=== PATIENT | female | born 1980 | race Caucasian/White ===

== ENCOUNTER 2023-02-11 21:29 | Emergency (ER) | payer BC, SELFPAY ==
[2023-02-11 21:31] VITALS: BP 132/69; PULSE 80; RESP 15; TEMP 36.3; O2SAT 100; BMI 37.3
--- NOTE | 2023-02-11 22:20 | CT_ITS ---
We are attempting to reach an attending provider to discuss findings. An addendum with communication details will be sent when the communication is complete. EXAM: CT PELVIS WITHOUT INTRAVENOUS CONTRAST CLINICAL INDICATION: vaginal pain, mass TECHNIQUE: Helically acquired images were obtained of the pelvis without intravenous contrast. This CT exam was performed using one or more of the following dose reduction techniques: automated exposure control, adjustment of the mA and/or kV according to patient size, and/or use of iterative reconstruction technique. RADIATION DOSE: CTDIvol = 28.21 mGy, DLP = 1032.15 mGy-cm. COMPARISON: No relevant prior studies available. FINDINGS: BOWEL: Unremarkable as visualized. No bowel distention. No focal inflammatory change. APPENDIX: No evidence of acute appendicitis. INTRAPERITONEAL SPACE: Trace intrapelvic fluid. No free air. BLADDER: Loss of fat plane between the posterior urinary bladder and the prominent cervix and posterior vagina on the sagittal images, there appears to be some intact posterior bladder wall. Mildly thick-walled appearance of the urinary bladder is almost collapsed. REPRODUCTIVE: Enlarged uterus with heterogeneous enlarged cervix, best seen on the sagittal exam, overall uterine size at least 11.3 cm x 6.1 cm x 7.3 cm with very heterogeneous enlarged cervix which may contain prominent complex material or large mass moderate large low-attenuation focus of roughly 4.8 cm x 4.3 cm involving cervix and possibly superior vagina. BONES/JOINTS: Unremarkable. No suspicious lytic or blastic abnormality. SOFT TISSUES: Small fat-containing inguinal hernias. Small fat-containing umbilical hernia is included. LYMPH NODES: Unremarkable. No enlarged lymph nodes. CT/Pelvis without IV Contrast IMPRESSION: 1. Enlarged uterus, mild, and very prominent and heterogeneous cervix-posterior vagina. Considerations include inflammation and/or neoplasm involving cervix and posterior vagina. 2. The endometrial stripe in the uterus is not clearly seen on this limited unenhanced exam. 3. Pelvic MRI might be considered if thought to be indicated. 4. Slight intrapelvic free fluid. 5. Normal appendix is included. 6. Small fat-containing inguinal and umbilical hernias. Electronically Signed: Alexus Diallo MD at 0:41 EDT ,
[2023-02-11 22:32] LABS: Bacteria 0 SEEN /hpf (None Seen); Mucous, Urine 0 SEEN /hpf (<or=2+)
[2023-02-11 22:34] LABS: Color, Urine Yellow (Yellow); Glucose, Dipstick Normal (Normal); Ketone-Dipstick 5 mg/dl (Negative); Leukocyte Esterase-Dipstick 500 /ul (Negative); Nitrite-Dipstick Negative (Negative); Occult Blood-Urine 250 /ul (Negative); Protein-Dipstick 30 mg/dl (Negative); Specific Gravity, Urine 1.015 (1.002-1.030); Urine Bilirubin Dipstick Negative (Negative); Urine Clarity Sl. Cloudy (Clear); Urine Urobilinogen Normal (Normal)
[2023-02-11 22:38] LABS: Internal QC Validated? YES +Cl - CLEAR BKGD; Pregnancy, Urine Negative Negative
[2023-02-11 22:41] LABS: Amorphous Sediment 1+ URATE; Red Blood Cells-Urine 10-25 SEEN /hpf (0-5); Squamous Epithelial Cells - UA 0-5 SEEN /hpf (5-10); White Blood Cells 25-50 SEEN /hpf (0-5)
--- NOTE | 2023-02-11 22:42 | EDS_ITS ---
HPI HPI - Female History of Present Illness Chief Complaint: Complaint Detail of Chief Complaint: Possible bladder or uterine prolapse Informant: patient Narrative Narrative: Patient presents due to concern for bladder or uterine prolapse. She states she had a full sensation in her vaginal area since Friday. She went to a [facility] in [place] today who told her they thought she had a prolapse and needed to follow-up with her [employer]. She cannot be seen until a week from Friday so therefore presented to the emergency room. She reports having some watery discharge, but no bleeding. She states her last menstrual cycle was a month ago when she should be due to start her cycle any day. PFSH FORMERLY [facility], 1928–1983 Medical History Abnormal Pap smear of cervix Home Medications NK 02/11/23 [History Last Taken Unknown] Allergy/AdvReac Type Severity Reaction Status Date / Time amoxicillin Allergy Swelling Verified 02/11/23 21:36 Family History Father Hypertension Mother Hyperlipemia Surgical History H/O knee surgery History of tonsillectomy Social History household members: spouse Smoking Status: Never smoker ROS ROS ED Constitutional Constitutional ED: Denies chills or fever(s) Eyes Eyes: Denies change in vision or discharge from eye(s) ENT ENT ED: Denies discharge from eye(s), rhinorrhea or sore throat Cardiovascular Cardiovascular: Denies chest pain or palpitations Respiratory/Chest Respiratory/Chest: Denies cough or dyspnea Gastrointestinal Gastrointestinal: Reports abdominal pain; Denies nausea or vomiting Genitourinary Genitourinary ED: Denies dysuria Musculoskeletal Musculoskeletal: Denies back pain or extremity pain Integumentary Denies Abrasions or rash Neurologic Neurologic: Denies headache(s) or weakness Psychiatric Psychiatric: Denies anxiety or depression Allergic/Immunologic Allergic/Immunologic ED: Denies lip swelling or urticaria EXAM Physical Exam Const Vital Signs: 02/11/23 21:31 02/12/23 00:14 Temperature 97.4 F L Temperature Source Temporal Pulse Rate 80 70 Respiratory Rate 15 16 Blood Pressure 132/69 H 114/60 Blood Pressure Mean 90 78 Pulse Ox 100 98 Oxygen Delivery Method Room Air Room Air Positive well nourished and well developed General Appearance ED: well developed HEENT Reports normocephalic and head/scalp atraumatic Eyes PERRL and EOMs intact bilaterally Neck supple Chest Wall inspection of chest normal and palpation of chest normal Resp normal respiratory effort and clear to auscultation bilaterally Cardio regular rate and regular rhythm GI normal to inspection, nondistended, normoactive bowel sounds Palpation: soft Narrative: Watery vaginal discharge noted. Cervix appears to be low riding on bimanual exam. Back/Spine no CVA tenderness Extremity normal to inspection Neuro oriented x3 and no sensory deficits noted Sensorium / Orientation: alert Motor Exam: strength 5/5 throughout Psych mental status grossly normal Skin no rashes or lesions noted MDM [facility] Lab Data Labs: Laboratory Results - last 24 hr 02/11/23 22:27 Urine Color Yellow Urine Clarity Sl. Cloudy Urine pH 6.0 Ur Specific [place] 1.015 Urine Protein 30 H Urine Glucose (UA) Normal Urine Ketones 5 H Urine Occult Blood 250 H Urine Nitrite Negative Urine Bilirubin Negative Urine Urobilinogen Normal Ur Leukocyte Esterase 500 H Urine RBC 10-25 SEEN Urine WBC 25-50 SEEN Ur Squamous Epith Cells 0-5 SEEN Amorphous Sediment 1+ URATE Urine Bacteria 0 SEEN Urine Mucus 0 SEEN Urine Test Negative Radiography Diagnostic Testing: Clinical Impression(s) from Imaging Studies Pelvis CT 02/11/23 22:20 IMPRESSION: 1. Enlarged uterus, mild, and very prominent and heterogeneous cervix-posterior vagina. Considerations include inflammation and/or neoplasm involving cervix and posterior vagina. 2. The endometrial stripe in the uterus is not clearly seen on this limited unenhanced exam. 3. Pelvic MRI might be considered if thought to be indicated. 4. Slight intrapelvic free fluid. 5. Normal appendix is included. 6. Small fat-containing inguinal and umbilical hernias. Electronically Signed: Alexus Diallo MD at 0:41 EDT , Discharge Plan Triage Chief Complaint: Complaint ED Provider: Tisha Simeon Dx/Rx/DC Orders Clinical Impression: Mass of cervix Prescriptions: No Action NK Primary Care Provider: Care Physician,No Primary Referrals: Michael Hatfield, DO [Non-Staff] - As soon as possible Care Physician,No Primary [Primary Care Provider] - Activity Restrictions/Additional Instructions: As discussed, your CT and ultrasound revealed an abnormal thickening of your cervix. This may be secondary to a complex cyst or cervical cancer. You will need further testing. I will call Dr. Palacio's office in the morning to update them on your findings. Please call their office later today to see if your appointment can get bumped to an earlier time. Disposition Disposition: Home, Self Care
--- NOTE | 2023-02-11 23:19 | US_ITS ---
EXAM: US PELVIS TRANSVAGINAL CLINICAL INDICATION: vaginal mass TECHNIQUE: Transvaginal pelvic ultrasound was performed with grayscale and color Doppler imaging. Transvaginal imaging was used for better evaluation of the endometrium and adnexa. COMPARISON: No relevant prior studies available. FINDINGS: UTERUS/CERVIX: There is a solid-appearing but nonvascular mass which appears to be surrounded by cyst in the central-left cervix, outer diameter roughly 2.5 cm x 1.9 cm x 2.4 cm. This may be complex material within a nabothian cervical cyst surrounded by neoplasm or avascular infarcted component of larger cervical neoplasm or infection. There is overall markedly enlarged cervix with markedly increased heterogeneous blood flow which may be due to inflammation and/or neoplasm. Overall size of cervix and/or cervical mass roughly 4.5 cm x 2.9 cm x 4.4 cm. Overall size of the uterus 12.6 cm x 6.8 cm x 5.6 cm, mildly enlarged. Thickened heterogeneous and hypervascular endometrium, estimated AP diameter of the fundal endometrium roughly 1.9 cm with thickened complex and hypervascular appearance of anterior mid to lower uterine endometrial margin. A nodular focus of 1.8 cm x 1.4 cm x 1.9 cm at the left posterior fundal endometrium is measured with some shadowing, this may be endometrial polyp or mass, mildly heterogeneous and lobulated appearance with a few small hypoechoic foci. RIGHT OVARY: 3.2 cm x 4.0 cm x 2.3 cm. Heterogeneous. There is an eccentric moderately thick walled complex suspected follicle with mixed echogenicity contents of 1.6 cm x 2 cm x 1.9 cm overall size. Blood flow is present in the right ovary. LEFT OVARY: Unremarkable. Only seen on transabdominal exam. 2.5 cm x 3.4 cm x 2 cm. Non-enlarged, normal echogenicity. Blood flow is present in the left ovary. FREE FLUID: None. BLADDER: Mildly distended, minimal and smooth wall thickening probably due to incomplete distention. Bladder volume 67 cc. US/Transvaginal Non- IMPRESSION: Enlarged uterus. Enlarged, heterogeneous and nodular appearance of uterine endometrium and cervix. Especially very complex and hypervascular enlarged cervix. Highly concerning for neoplasm. Thick-walled and complex but small right ovarian structure. These findings were discussed with the referring physician prior to the dictation. Thank you. Electronically Signed: Alexus Diallo MD at 0:58 EDT ,
[2023-02-12 00:14] VITALS: BP 114/60; PULSE 70; RESP 16; O2SAT 98
== END 2023-02-12 01:01 | disposition home or self-care (01) ==
PROVIDERS: Emergency Provider Emergency Medicine; Visit Provider Emergency Medicine
DX: N85.8 Other specified noninflammatory disorders of uterus (principal)
CPT/HCPCS: 72192; 76830; 81001; 81025; 99282